=== PATIENT | male | born 1975 | race Caucasian/White ===

== ENCOUNTER 2021-01-24 06:15 | Day surgery (SDC) | payer BC ==
[2021-01-21 17:54] VITALS: BMI 19.8
[2021-01-24] MEDS ORDERED: LIDOCAINE HCL 2% (20ML MULTI-DOSE VIAL) ONE (07:22)
[2021-01-24] MEDS ORDERED: MIDAZOLAM HCL 2 MG/2 ML SINGLE DOSE VIAL ONE ×2 (07:52)
[2021-01-24] MEDS ORDERED: PROPOFOL 20 ML ONE ×2 (07:53→09:16)
[2021-01-24] MEDS ORDERED: SUCCINYLCHOLINE CHLORIDE 200 MG/10 ML SYRINGE ONE (07:53)
[2021-01-24] MEDS ORDERED: ONDANSETRON 4 MG/2 ML VIAL IVPUSH PRN (08:00)
[2021-01-24] MEDS ORDERED: LACTATED RINGERS SOLUTION 1,000 ML IV SCH (08:00)
[2021-01-24] MEDS ORDERED: PROMETHAZINE HCL 25 MG/1 ML VIAL IVPUSH PRN (08:00)
[2021-01-24] MEDS ORDERED: oxyCODONE HCL 5 MG TABLET PO PRN (08:00)
[2021-01-24 09:43] VITALS: BP 131/85; PULSE 64; TEMP 97.7
== END 2021-01-24 09:44 | disposition home or self-care (01) ==
LOC: FASU 06:15
PROVIDERS: ATTEND Orthopaedic Surgery
PROC: 0LN70ZZ Release Right Hand Tendon, Open Approach (ICD-10-PCS; 2021-01-24)
PROC: 0LN70ZZ Release Right Hand Tendon, Open Approach (ICD-10-PCS; principal; 2021-01-24 08:28)
DX: M65.331 Trigger finger, right middle finger (principal); M65.341 Trigger finger, right ring finger